=== PATIENT | female | born 1945 | race Caucasian/White ===

== ENCOUNTER 2020-10-24 09:52 | Inpatient (IN) ==
[2020-10-24] MEDS ORDERED: IOPAMIDOL 100 ML BOTTLE IV ONE (09:53)
[2020-10-24] MEDS ORDERED: ONDANSETRON 4 MG/2 ML VIAL IV ONE ×2 (10:50→12:53)
[2020-10-24] MEDS ORDERED: morphine 2 MG/ML VIAL IV PRN (10:50)
[2020-10-24] MEDS ORDERED: 0.9 % SODIUM CHLORIDE 1,000 ML IV ONE (10:50)
--- NOTE | 2020-10-24 10:56 | Emergency Department Note ---
Abdominal Pain HPI General Chief Complaint: Abdominal Pain Stated Complaint: LLQ pain Time Seen by Provider: 10/24/20 10:21 Source: patient, RN notes reviewed and old records reviewed Mode of arrival: ambulatory Limitations: no limitations History of Present Illness HPI Narrative: Narrative: 75-year-old female with 5-day history of moderate left lower quadrant abdominal pain. She has had slight nausea no vomiting no bright red blood per rectum or black tarry stools. Had slight diarrhea which is led to constipation with no BM times many days. Denies any urinary complaints or vaginal discharge or bleeding. Had fevers and chills today prior to arrival MD Complaint: abdominal pain Onset (ago): day(s) (5) Consistency: constant Location: LLQ Severity: moderate Quality: cramping and aching Radiation: none Migration to: no migration Improves with: nothing Worsens with: movement Context: history of similar episodes (Diverticulitis equivalency) Associated symptoms: Reports nausea, fever, chills and constipation; Denies vomiting, diarrhea, dysuria, hematemesis, hematochezia, melena, hematuria, anorexia and syncope Treatments prior to arrival: NSAIDs Related Data Home Medications Medication Instructions Recorded Confirmed cholecalciferol (vitamin D3) 50 5,000 unit PO QDAY 11/23/18 10/24/20 mcg (2,000 unit) capsule latanoprost 0.005 % eye drops 1 drp OPHTHALMIC QPM 11/23/18 10/24/20 gabapentin 300 mg capsule 300 mg PO TID PRN 04/12/19 10/24/20 clindamycin phosphate 1 % topical 1 applic TOPICAL QDAY 01/30/20 10/24/20 gel biotin 2,500 mcg PO QDAY 05/14/20 10/24/20 lysine 1 mg PO QDAY 05/14/20 10/24/20 sennosides 8.6 mg tablet 8.6 mg PO QDAY 06/07/20 10/24/20 Previous Rx's Medication Instructions Recorded omeprazole 40 mg capsule,delayed 40 mg PO QDAY #90 cap 03/23/20 release levothyroxine 175 mcg tablet 175 mcg PO QDAY #90 tab 05/28/20 naproxen 500 mg tablet See Rx Instructions .ROUTE 10/23/20 .COMPLEX #60 tab zolpidem 5 mg tablet 5 mg PO QHS PRN #30 tab 10/23/20 Allergies Allergy/AdvReac Type Severity Reaction Status Date / Time latex AdvReac Intermediate Rash Verified 10/24/20 09:54 Nickel AdvReac Intermediate Rash Verified 10/24/20 09:54 Review of Systems ROS ROS Narrative: Narrative: All systems ED: reviewed and negative except as stated. [facility] Narr[facility] Patient History Narrative: Narrative: Medical/Surgical/Family History All Active Problems (Updated 10/24/20 @ 14:09 by Estuardo Zapien MD) Acute diverticulitis of intestine (Acute) Diverticulitis large intestine (Acute) Myalgia (Acute) Facial swelling (Acute) URI (upper respiratory infection) (Acute) Abdominal pain (Acute) Change in bowel function (Acute) Blurring, left eye (Acute) Heartburn (Acute) Nausea (Acute) Dizziness (Acute) Constipation (Acute) Headache (Acute) Frontal sinusitis (Acute) URI with cough and congestion (Acute) History of mammogram (Chronic ~06/19/16) Osteoarthritis (Chronic) History of Papanicolaou smear of cervix (Chronic) Stress (Chronic) Vertigo (Chronic) Physical exam, routine (Chronic) Adjustment disorder with depressed mood (Acute) Grief at loss of child (Acute) Anxiety (Acute) Hypothyroidism (Acute) Bradycardia (Acute) Back pain (Acute) Stress disorder, acute (Acute) Hyperlipidemia (Acute) Lumbar radiculopathy (Acute) Peripheral vertigo (Acute) Cervical radiculopathy (Acute) Memory loss (Acute) Plantar fasciitis (Acute) Adult general medical exam (Acute) Other synovitis and tenosynovitis, left ankle and foot (Acute) Former smoker (Acute) Insomnia (Acute) BMI 30.0-30.9,adult (Acute) Allergic rhinitis (Acute) Medical History (Updated 10/24/20 @ 14:09 by Estuardo Zapien MD) History of mammogram (~06/19/16) History of Papanicolaou smear of cervix Normal Osteoarthritis Physical exam, routine Stress Vertigo Surgical History History of cataract extraction (~02/2018) History of colonoscopy (~2014) Dr. Barba - Diverticuli - Repeat in 5 yrs. History of neck surgery (~11/2015) Dr. Givens History of sinus surgery (~2017) Dr. Burry Hx of lumpectomy Negative Family History Mother CVA (cerebral vascular accident) Glaucoma Hypothyroidism Arthritis Osteoporosis Sister Melanoma Father , Age 84 Heart disease Social History Smoking Status: Former smoker Alcohol Intake Frequency: 0-2 drinks per day Substance Use: does not use Exam Narrative Narrative: Narrative: General Limitations: no limitations General appearance: Present alert and in no apparent distress Head Head: Present atraumatic and normocephalic Eye Eye: Present normal appearance, PERRL and EOMI ENT ENT: Present normal exam and mucous membranes moist Neck Neck: Present normal inspection and full ROM Chest Chest: Present normal inspection; Absent tenderness Respiratory Respiratory: Present normal lung sounds bilaterally; Absent respiratory distress Cardiovascular Cardiovascular: Present regular rate and normal rhythm; Absent systolic murmur Adbominal Abdominal: Present soft, tenderness (Left lower quadrant) and normal bowel sound s; Absent distention, guarding, rebound, rigidity, organomegaly, trauma, Mur phy's sign, tenderness at McBurney's Point, ascites, mass, bruit, pulsatile mass and hernia Rectal Rectal: Present normal inspection, normal rectal tone, heme (-) stool and tenderness; Absent decreased rectal tone, heme (+) stool, black stool, bloody stool, fecal impaction, hemorrhoids and mass Extremities Extremities: Present normal inspection and full ROM; Absent tenderness, pedal edema and pretibial edema Back Back: Present normal inspection and full ROM; Absent tenderness, CVA tenderness (R) and CVA tenderness (L) Neurological Neurological: Present alert and oriented X3 Psychiatric Psychiatric: Present normal affect and normal mood Skin Skin: Present warm (WNL); Absent rash Course Vital Signs Vital signs: Vital Signs Temperature 98.2 F 10/24/20 09:52 Pulse Rate 69 10/24/20 09:52 Respiratory Rate 18 10/24/20 09:52 Blood Pressure 124/74 10/24/20 09:52 Pulse Oximetry (%) 98 10/24/20 09:52 Temperature 97.0 F 10/25/20 07:12 Pulse Rate 62 10/25/20 07:12 Respiratory Rate 12 10/25/20 07:12 Blood Pressure 100/60 10/25/20 07:12 Pulse Oximetry (%) 95 10/25/20 07:12 [facility] MDM Narrative Medical decision making narrative: Narrative: 75-year-old female with diverticulitis and phlegmon discussed with Dr. Estuardo Zapien who graciously agreed to admit patient and IV antibiotics and evaluate the patient in emergency department. Differential Diagnosis Differential Diagnosis: Diverticulitis diverticulosis small bowel obstruction abscess. Medical Records Medical records reviewed: Yes I reviewed the patient's medical records. Lab Data Lab results reviewed: Yes I reviewed the patient's lab results. Result diagrams: 10/24/20 11:15 10/24/20 11:15 Labs: Lab Results 10/24/20 10/24/20 Range/Units 11:15 11:15 WBC 9.7 (4.5-11.0) K/mcL RBC 4.19 (3.59-5.38) M/mcL Hgb 13.1 (11.2-15.7) g/dL Hct 38.1 (34.1-44.9) % MCV 90.9 (80.0-100.0) fL MCH 31.3 (26.0-34.0) pg MCHC 34.4 (31.0-36.0) g/dL RDW 12.9 (11.5-14.5) % Plt Count 227 (140-440) K/mcL MPV 8.8 (7.4-10.4) fL Neut % (Auto) 70.9 (38.0-78.0) % Lymph % (Auto) 16.9 (15.5-49.0) % [place] % (Auto) 11.1 (1.0-12.0) % Eos % (Auto) 0.9 (0.0-7.0) % Baso % (Auto) 0.2 (0.0-2.0) % Lymph # (Auto) 1.63 (1.50-4.80) K/mcL [place] # (Auto) 1.07 H (0.10-0.90) K/mcL Eos # (Auto) 0.09 (0.00-0.70) K/mcL Baso # (Auto) 0.02 (0.00-0.30) K/mcL Absolute Neutrophils 6.86 (1.80-8.00) K/mcL Sodium 134 (133-145) mmol/L Potassium 3.6 (3.3-5.1) mmol/L Chloride 100 (96-108) mmol/L Carbon Dioxide 23 (22-30) mmol/L Anion Gap 11.0 (8.0-16.0) BUN 7 L (8-23) mg/dL Creatinine 0.7 (0.6-1.1) mg/dL POC Creatinine 0.7 (0.6-1.2) mg/dL GFR Calculation 85 Glucose 96 (70-105) mg/dL Calcium 8.8 (8.6-10.4) mg/dL Total Bilirubin 1.2 H (0.1-1.0) mg/dL AST 16 (<32) U/L ALT 15 (<40) U/L Alkaline Phosphatase 43 (39-117) U/L Total Protein 7.2 (5.9-8.4) gm/dL Albumin 4.1 (3.2-5.2) gm/dL Globulin 3.1 (2.2-3.7) gm/dL Albumin/Globulin Ratio 1.3 (1.0-2.3) Lipase 18 (7-60) U/L ED POC Tests ED POC Tests: ALIYA - SARS Antigen Negative Radiology Data Radiology results reviewed: Yes I reviewed the patient's radiology results. Radiology results narrative: IMPRESSION: Acute sigmoid diverticulitis with a phlegmon evolving along the left lateral pelvic sidewall Dr. Martinez was called with the report Interpreted and Authenticated by: Dalton Brown 10/24/20 Pulse Oximetry Data Pulse Ox %: 97 Interpretation: 97% on room air is within normal limits. Discharge Plan Patient/Caregiver Discharge Instructions Pt seen by [facility]ER/PA only: No Clinical Impression: Diverticulitis large intestine Qualifiers: Diverticulitis bleeding: without bleeding Diverticulitis complication: with abscess Qualified Code(s): K57.20 - Diverticulitis of large intestine with perforation and abscess without bleeding Patient Disposition: Xfer As Inpt ([facility]) Condition: Fair Discharge Date/Time: 10/24/20 15:40
[2020-10-24 11:51] LABS: POC Creatinine 0.7 mg/dL (0.6-1.2)
[2020-10-24 12:21] LABS: ALT/SGPT 15 U/L (<40); AST/SGOT 16 U/L (<32); Albumin 4.1 gm/dL (3.2-5.2); Albumin/Globulin Ratio 1.3 (1.0-2.3); Alkaline Phosphatase 43 U/L (39-117); Bilirubin,Total 1.2 mg/dL (0.1-1.0); Blood Urea Nitrogen 7 mg/dL (8-23); Calcium 8.8 mg/dL (8.6-10.4); Carbon Dioxide 23 mmol/L (22-30); Chloride 100 mmol/L (96-108); Globulin 3.1 gm/dL (2.2-3.7); Glomerular Filtration Rate 85; Glucose 96 mg/dL (70-105)
--- NOTE | 2020-10-24 12:27 | Cat Scan Report ---
History: Left lower quadrant pain TECHNIQUE: The abdomen was imaged following intravenous contrast scanning during the portal venous phase from the diaphragm through the symphysis pubis. Excretory phase images of the upper abdomen were acquired. Sagittal and coronal reformats were created. The radiation exposure was limited using dose reduction technology. FINDINGS: The lung bases are clear. There are multiple cysts in the liver. The largest are located inferiorly in segment six. These are chronic finding with no significant change since 04/20/20. No solid mass is seen in the liver. The bile ducts are nondilated. Gallbladder is normal with no stones or thickening of the wall. The spleen is normal in size and homogeneous. The pancreas is normal with no mass or inflammation. The adrenals and kidneys are normal. There is no stone or hydronephrosis. Large amount calcified plaque is present along the wall of the aorta with milder involvement in the iliac arteries. There is also plaque formation at the origins of both renal arteries. Multiple diverticula are present in the sigmoid colon and descending colon. There is acute diverticulitis in the sigmoid colon. There is significant stranding of the fat along the left side of the sigmoid colon tracking superiorly along the left ovarian vein. The vein is not thrombosed. This may be a phlegmon. No abscess is present. There is trace amount of free fluid deep in the right lower pelvis. No free intra-abdominal air is present.. No bowel obstruction is present. Small intestine is normal. The appendix is noninflamed. Uterus and ovaries are atrophic. Urinary bladder is normal. There is severe degenerative disc disease and arthritis at multiple levels in the lumbar spine. IMPRESSION: Acute sigmoid diverticulitis with a phlegmon evolving along the left lateral pelvic sidewall Dr. Martinez was called with the report Interpreted and Authenticated by: Dalton Brown 10/24/20
[2020-10-24] MEDS ORDERED: PIPERACILLIN SODIUM/TAZOBACTAM 4.5 GM in DEXTROSE 5% IN WATER 50 ML IV ONE (12:29)
[2020-10-24 14:09] LABS: Basophils # (Auto) 0.02 K/mcL (0.00-0.30); Basophils % (Auto) 0.2 % (0.0-2.0); Eosinophils # (Auto) 0.09 K/mcL (0.00-0.70); Eosinophils % (Auto) 0.9 % (0.0-7.0); Hematocrit 38.1 % (34.1-44.9); Hemoglobin 13.1 g/dL (11.2-15.7); Lymphocytes # (Auto) 1.63 K/mcL (1.50-4.80); Lymphocytes % (Auto) 16.9 % (15.5-49.0); Mean Cell Volume 90.9 fL (80.0-100.0); Mean Corpuscular HGB Conc 34.4 g/dL (31.0-36.0); Mean Platelet Volume 8.8 fL (7.4-10.4); Monocytes # (Auto) 1.07 K/mcL (0.10-0.90); Monocytes % (Auto) 11.1 % (1.0-12.0); Neutrophils % (Auto) 70.9 % (38.0-78.0); Platelet Count 227 K/mcL (140-440); RBC 4.19 M/mcL (3.59-5.38); Red Cell Distribution Width 12.9 % (11.5-14.5); WBC 9.7 K/mcL (4.5-11.0)
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
[2020-10-24] MEDS ORDERED: ONDANSETRON 4 MG/2 ML VIAL IV PRN (18:47)
[2020-10-24] MEDS ORDERED: HYDROmorphone 0.5 MG/0.5 ML SYRINGE IV PRN (18:53)
[2020-10-24] MEDS ORDERED: oxyCODONE HCL 5 MG TABLET PO PRN (18:53)
[2020-10-24] MEDS ORDERED: GABAPENTIN 300 MG CAPSULE PO PRN (19:01)
[2020-10-24] MEDS: 0.9 % SODIUM CHLORIDE 10 ML SYRINGE IV SCH (19:40)
[2020-10-24] MEDS: 0.9 % SODIUM CHLORIDE 1,000 ML IV SCH (19:41)
[2020-10-24] MEDS: PIPERACILLIN SODIUM/TAZOBACTAM 3.375 GM in DEXTROSE 5% IN WATER 50 ML IV SCH (19:41)
[2020-10-24] MEDS: DOCUSATE SODIUM 100 MG CAPSULE PO SCH (19:42)
[2020-10-24] MEDS: SENNOSIDES 1 TABLET PO SCH (19:42)
[2020-10-24] MEDS: LATANOPROST OPHTH DROPS 2.5ML BOTTLE OU SCH (19:43)
[2020-10-24] MEDS ORDERED: LATANOPROST OPHTH DROPS 2.5ML BOTTLE OS SCH (21:00)
[2020-10-24] MEDS ORDERED: ZOLPIDEM 5 MG TABLET PO PRN (21:00)
[2020-10-25] MEDS: PIPERACILLIN SODIUM/TAZOBACTAM 3.375 GM in DEXTROSE 5% IN WATER 50 ML IV SCH ×5 (00:50→23:31)
[2020-10-25] MEDS: 0.9 % SODIUM CHLORIDE 1,000 ML IV SCH ×4 (04:32→21:40)
[2020-10-25] MEDS: 0.9 % SODIUM CHLORIDE 10 ML SYRINGE IV SCH ×3 (04:33→21:42)
--- NOTE | 2020-10-25 06:24 | EKG ---
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
[2020-10-25] MEDS: PANTOPRAZOLE 40 MG TABLET PO SCH (07:42)
[2020-10-25] MEDS: LEVOTHYROXINE 75 MCG TABLET PO SCH (07:43)
[2020-10-25] MEDS: LEVOTHYROXINE 100 MCG TABLET PO SCH (07:43)
[2020-10-25] MEDS: DOCUSATE SODIUM 100 MG CAPSULE PO SCH ×2 (08:43→20:38)
--- NOTE | 2020-10-25 08:47 | XRay Report ---
HISTORY: Preop FINDINGS: Lateral view shows a lungs are mildly hyperinflated with an increased AP diameter and mild flattening of the diaphragms. There is attenuation of the peripheral pulmonary vessels in both upper lobes consistent with mild COPD. There is no evidence of pneumonia, mass or congestive heart failure. The heart size, mediastinum, sudhir and pleura are normal. There has been prior fusion in the lower neck. IMPRESSION: Mild COPD and no acute abnormality Interpreted and Authenticated by: Dalton Brown 10/25/20
[2020-10-25 08:50] LABS: Basophils # (Auto) 0.03 K/mcL (0.00-0.30); Basophils % (Auto) 0.4 % (0.0-2.0); Eosinophils # (Auto) 0.19 K/mcL (0.00-0.70); Eosinophils % (Auto) 2.7 % (0.0-7.0); Hematocrit 36.3 % (34.1-44.9); Hemoglobin 11.5 g/dL (11.2-15.7); Lymphocytes # (Auto) 1.34 K/mcL (1.50-4.80); Lymphocytes % (Auto) 19.1 % (15.5-49.0); Mean Cell Volume 93.3 fL (80.0-100.0); Mean Corpuscular HGB Conc 31.7 g/dL (31.0-36.0); Mean Platelet Volume 9.2 fL (7.4-10.4); Monocytes # (Auto) 0.84 K/mcL (0.10-0.90); Monocytes % (Auto) 11.9 % (1.0-12.0); Neutrophils % (Auto) 65.9 % (38.0-78.0); Platelet Count 217 K/mcL (140-440); RBC 3.89 M/mcL (3.59-5.38); Red Cell Distribution Width 12.9 % (11.5-14.5)
[2020-10-25 09:13] LABS: ALT/SGPT 11 U/L (<40); AST/SGOT 14 U/L (<32); Albumin 3.6 gm/dL (3.2-5.2); Albumin/Globulin Ratio 1.3 (1.0-2.3); Alkaline Phosphatase 38 U/L (39-117); Bilirubin,Direct 0.2 mg/dL (<0.3); Blood Urea Nitrogen 5 mg/dL (8-23); Calcium 8.5 mg/dL (8.6-10.4); Carbon Dioxide 24 mmol/L (22-30); Chloride 105 mmol/L (96-108); Globulin 2.8 gm/dL (2.2-3.7); Glomerular Filtration Rate 85; Glucose 88 mg/dL (70-105); Lactate Dehydrogenase 127 U/L (135-225); Phosphorous 2.7 mg/dL (2.5-4.5); Triglycerides 82 mg/dL (<150); Uric Acid 2.8 mg/dL (2.5-8.0)
--- NOTE | 2020-10-25 15:24 | General Surgery Progress Note ---
SUBJECTIVE Subjective Patient information: Note initiated : 10/25/20 at 3:21 pm Service Date, if different from initiated Date: [] Patient: Marla Andino 75 y/o F admitted on 10/24/20 for LLQ Pain. Chief Complaint: [] Principal diagnosis: Diverticulitis Interval history: Patient states that she feels much better. She has less tenderness. She is passing flatus but has not had a bowel movement. She denies nausea. She has been afebrile. Constitutional Vitals: Vital Signs Temp Pulse Resp BP Pulse Ox 97.0 F 70 12 129/70 98 10/25/20 12:00 10/25/20 12:00 10/25/20 12:00 10/25/20 12:00 10/25/20 12:00 Period Temp Pulse Resp BP Sys/Bruce Pulse Ox Last 24 Hr 97.0 F-98.7 F 61-95 12-16 100-145/60-78 95-98 Intake and Output 10/25/20 10/25/20 10/25/20 05:59 13:59 21:59 Intake Total 1850 1330 720 Balance 1850 1330 720 Weight 183 lb 14.4 oz Patient Weight 10/26/20 05:59 Weight 183 lb 14.4 oz Intake & Output: Intake & Output 10/25/20 10/25/20 10/25/20 05:59 13:59 21:59 Intake Total 1850 1330 720 Balance 1850 1330 720 Weight 183 lb 14.4 oz Intake: IV 1050 1090 Sodium Chloride 0.9% 1,000 ml @ 1000 990 125 mls/hr IV .Q8H ADÁN Rx#: [id number] Zosyn 3.375 gm In Dextrose 5% 50 100 in Water 50 ml @ 100 mls/hr IV Q6H ADÁN Rx#:[id number] Oral 800 240 720 Other: Meal Lunch # Voids 2 ENT ENT exam: Present mucous membranes moist, normal external ear exam and normal oropharynx Neck Neck exam: Present full ROM and normal inspection; Absent tenderness Respiratory Respiratory exam: Present normal respiratory exam and CTAB; Absent rales, rhonchi and wheezes Cardiovascular Cardiovascular exam: Present normal rate and rhythm, RRR, +S1 and +S2; Absent gallop and JVD GI/Abdominal GI/Abdominal exam: Present normal bowel sounds, distended, hyperactive bowel sounds and tenderness (Tenderness in left lower quadrant) Extremities Exam Extremities exam: Present full ROM, normal capillary refill and neurovascular intact Neurological Exam Neurological exam: Present alert, normal gait and oriented X3 Psychiatric Psychiatric exam: Present normal affect and normal mood A/P Assessment and plan (1) Acute diverticulitis of intestine: Status: Acute (2) Osteoarthritis: Status: Chronic (3) Adjustment disorder with depressed mood: Status: Acute Narrative A/P Narrative: We will continue present antibiotic therapy and clear liquid diet Time Spent With Patient Time: Total time spent is greater than 50% in coordination of care (as documented) at patient's floor/unit and/or counseling patient:
[2020-10-25] MEDS: SENNOSIDES 1 TABLET PO SCH (20:38)
[2020-10-25] MEDS: LATANOPROST OPHTH DROPS 2.5ML BOTTLE OU SCH (21:42)
[2020-10-26] MEDS: ACETAMINOPHEN 1,000 MG/100 ML BAG IV PRN ×2 (01:44→12:39)
[2020-10-26] MEDS: 0.9 % SODIUM CHLORIDE 10 ML SYRINGE IV SCH ×3 (05:46→20:07)
[2020-10-26] MEDS: 0.9 % SODIUM CHLORIDE 1,000 ML IV SCH ×2 (05:47→09:55)
[2020-10-26] MEDS: PIPERACILLIN SODIUM/TAZOBACTAM 3.375 GM in DEXTROSE 5% IN WATER 50 ML IV SCH ×4 (06:02→23:58)
[2020-10-26] MEDS: PANTOPRAZOLE 40 MG TABLET PO SCH (07:24)
[2020-10-26] MEDS: LEVOTHYROXINE 75 MCG TABLET PO SCH (07:24)
[2020-10-26] MEDS: LEVOTHYROXINE 100 MCG TABLET PO SCH (07:24)
[2020-10-26] MEDS: DOCUSATE SODIUM 100 MG CAPSULE PO SCH ×2 (07:54→20:01)
[2020-10-26 08:15] LABS: Basophils # (Auto) 0.03 K/mcL (0.00-0.30); Basophils % (Auto) 0.6 % (0.0-2.0); Eosinophils # (Auto) 0.32 K/mcL (0.00-0.70); Eosinophils % (Auto) 6.4 % (0.0-7.0); Hematocrit 32.6 % (34.1-44.9); Lymphocytes % (Auto) 27.8 % (15.5-49.0); Mean Cell Volume 91.8 fL (80.0-100.0); Mean Corpuscular HGB Conc 33.7 g/dL (31.0-36.0); Mean Platelet Volume 8.9 fL (7.4-10.4); Monocytes # (Auto) 0.61 K/mcL (0.10-0.90); Monocytes % (Auto) 12.1 % (1.0-12.0); Neutrophils % (Auto) 53.1 % (38.0-78.0); Platelet Count 212 K/mcL (140-440); RBC 3.55 M/mcL (3.59-5.38); Red Cell Distribution Width 12.5 % (11.5-14.5)
[2020-10-26 08:42] LABS: ALT/SGPT 12 U/L (<40); AST/SGOT 12 U/L (<32); Albumin 3.7 gm/dL (3.2-5.2); Albumin/Globulin Ratio 1.5 (1.0-2.3); Alkaline Phosphatase 35 U/L (39-117); Bilirubin,Direct 0.2 mg/dL (<0.3); Bilirubin,Total 0.7 mg/dL (0.1-1.0); Blood Urea Nitrogen 4 mg/dL (8-23); Calcium 8.7 mg/dL (8.6-10.4); Carbon Dioxide 23 mmol/L (22-30); Chloride 108 mmol/L (96-108); Globulin 2.4 gm/dL (2.2-3.7); Glomerular Filtration Rate 90; Glucose 90 mg/dL (70-105); Lactate Dehydrogenase 131 U/L (135-225); Phosphorous 2.5 mg/dL (2.5-4.5); Triglycerides 92 mg/dL (<150); Uric Acid 2.6 mg/dL (2.5-8.0)
--- NOTE | 2020-10-26 14:47 | General Surgery Progress Note ---
SUBJECTIVE Subjective Patient information: Note initiated : 10/26/20 at 2:45 pm Service Date, if different from initiated Date: [] Patient: Marla Andino 75 y/o F admitted on 10/24/20 for LLQ Pain. Chief Complaint: [] Principal diagnosis: Diverticulitis Interval history: Patient states that she feels better. She has much less pain. She is having some liquid bowel movements. She has been afebrile and her white blood count is normal. She has less abdominal distention. Constitutional Vitals: Vital Signs Temp Pulse Resp BP Pulse Ox 97.3 F 48 L 16 134/65 96 10/26/20 12:00 10/26/20 12:00 10/26/20 12:00 10/26/20 12:00 10/26/20 12:00 Period Temp Pulse Resp BP Sys/Bruce Pulse Ox Last 24 Hr 97.2 F-97.8 F 48-69 12-16 111-134/61-70 94-96 Intake and Output 10/26/20 10/26/20 10/26/20 05:59 13:59 21:59 Intake Total 885 2160 Balance 885 2160 Intake & Output: Intake & Output 10/26/20 10/26/20 10/26/20 05:59 13:59 21:59 Intake Total 885 2160 Balance 885 2160 Intake: IV 885 200 Sodium Chloride 0.9% 1,000 ml @ 735 75 mls/hr IV .[id number] ADÁN Rx#: [id number] Zosyn 3.375 gm In Dextrose 5% 50 100 in Water 50 ml @ 100 mls/hr IV Q6H ADÁN Rx#:[id number] Oral 1960 Other: Meal Lunch Percent of Meal Consumed 100% Feeding Ability Independent # Voids 2 ENT ENT exam: Present mucous membranes moist, normal external ear exam and normal oropharynx Neck Neck exam: Present full ROM and normal inspection; Absent tenderness Respiratory Respiratory exam: Present normal respiratory exam and CTAB; Absent rales, rhonchi and wheezes Cardiovascular Cardiovascular exam: Present normal rate and rhythm, RRR, +S1 and +S2; Absent gallop and JVD GI/Abdominal GI/Abdominal exam: Present normal bowel sounds, distended, hyperactive bowel sounds and tenderness (Tenderness in left lower quadrant) Additional comments: Tenderness is significantly improved from yesterday Extremities Exam Extremities exam: Present full ROM, normal capillary refill and neurovascular intact Neurological Exam Neurological exam: Present alert, normal gait and oriented X3 Psychiatric Psychiatric exam: Present normal affect and normal mood A/P Assessment and plan (1) Acute diverticulitis of intestine: Status: Acute (2) Osteoarthritis: Status: Chronic (3) Adjustment disorder with depressed mood: Status: Acute Narrative A/P Narrative: Continue present antibiotic therapy CT of abdomen and pelvis with IV contrast in a.m. Time Spent With Patient Time: Total time spent is greater than 50% in coordination of care (as documented) at patient's floor/unit and/or counseling patient:
[2020-10-26] MEDS: SENNOSIDES 1 TABLET PO SCH (20:01)
[2020-10-26] MEDS: LATANOPROST OPHTH DROPS 2.5ML BOTTLE OU SCH (20:02)
[2020-10-27] MEDS: 0.9 % SODIUM CHLORIDE 1,000 ML IV SCH (02:30)
[2020-10-27] MEDS: PIPERACILLIN SODIUM/TAZOBACTAM 3.375 GM in DEXTROSE 5% IN WATER 50 ML IV SCH ×2 (05:33→11:45)
[2020-10-27] MEDS: 0.9 % SODIUM CHLORIDE 10 ML SYRINGE IV SCH (05:33)
[2020-10-27 07:23] LABS: Basophils # (Auto) 0.03 K/mcL (0.00-0.30); Basophils % (Auto) 0.7 % (0.0-2.0); Eosinophils # (Auto) 0.34 K/mcL (0.00-0.70); Eosinophils % (Auto) 7.4 % (0.0-7.0); Hematocrit 38.1 % (34.1-44.9); Hemoglobin 12.1 g/dL (11.2-15.7); Lymphocytes # (Auto) 1.35 K/mcL (1.50-4.80); Lymphocytes % (Auto) 29.5 % (15.5-49.0); Mean Cell Volume 93.2 fL (80.0-100.0); Mean Corpuscular HGB Conc 31.8 g/dL (31.0-36.0); Mean Platelet Volume 8.9 fL (7.4-10.4); Monocytes # (Auto) 0.51 K/mcL (0.10-0.90); Monocytes % (Auto) 11.1 % (1.0-12.0); Neutrophils % (Auto) 51.3 % (38.0-78.0); Platelet Count 257 K/mcL (140-440); RBC 4.09 M/mcL (3.59-5.38); Red Cell Distribution Width 12.3 % (11.5-14.5); WBC 4.6 K/mcL (4.5-11.0)
[2020-10-27] MEDS: LEVOTHYROXINE 75 MCG TABLET PO SCH (07:49)
[2020-10-27] MEDS: PANTOPRAZOLE 40 MG TABLET PO SCH (07:49)
[2020-10-27] MEDS: LEVOTHYROXINE 100 MCG TABLET PO SCH (07:49)
[2020-10-27] MEDS: DOCUSATE SODIUM 100 MG CAPSULE PO SCH (07:49)
[2020-10-27 08:08] LABS: ALT/SGPT 13 U/L (<40); AST/SGOT 16 U/L (<32); Albumin/Globulin Ratio 1.3 (1.0-2.3); Alkaline Phosphatase 36 U/L (39-117); Bilirubin,Direct < 0.2 mg/dL (0-0.3); Bilirubin,Total 0.6 mg/dL (0.1-1.0); Blood Urea Nitrogen 3 mg/dL (8-23); Calcium 9.2 mg/dL (8.6-10.4); Carbon Dioxide 23 mmol/L (22-30); Chloride 105 mmol/L (96-108); Glomerular Filtration Rate 85; Glucose 84 mg/dL (70-105); Lactate Dehydrogenase 154 U/L (135-225); Phosphorous 3.1 mg/dL (2.5-4.5); Triglycerides 123 mg/dL (<150); Uric Acid 2.1 mg/dL (2.5-8.0)
[2020-10-27] MEDS ORDERED: IOPAMIDOL 100 ML BOTTLE IV ONE (09:25)
--- NOTE | 2020-10-27 09:54 | Cat Scan Report ---
History: Follow-up sigmoid diverticulitis with left lower quadrant pain TECHNIQUE: Following injection of intravenous nonionic contrast the patient was scanned during the portal venous phase from the diaphragm through the symphysis pubis. Sagittal and coronal reformats were created. The radiation exposure was limited using dose reduction technology. FINDINGS: There are several diverticula in the sigmoid and descending colon. There is inflammation in and adjacent to the proximal sigmoid colon. A small phlegmon is present which tracks superiorly along the inferior aspect of the left gonadal vein. The inflammation has improved since the prior exam done on 10/24/20. There is no abscess. There is no perforation. No bowel obstruction is present. Small intestine is normal. There are multiple cysts throughout the liver which remain stable. The gallbladder, spleen, pancreas, adrenals and kidneys are normal. Atherosclerotic disease is again seen in the aorta and iliac arteries. No abnormality is seen within the bladder uterus or ovaries. IMPRESSION: Improving proximal sigmoid diverticulitis Interpreted and Authenticated by: Dalton Brown 10/27/20
--- NOTE | 2020-10-27 11:36 | Discharge Summary ---
Discharge Provider Provider Patient information: Note initiated : 10/27/20 at 11:29 am Service Date, if different from initiated Date: [] Patient: Marla Andino 75 y/o F admitted on 10/24/20 for LLQ Pain. Chief Complaint: [] Date of admission: 10/24/20 15:40 Discharge date: 10/27/20 Primary care physician: Merline Zapien Admitting clinician: Vanessa Zapien Consults: 10/24/20 12:37 Consult to Physician [CONS] Stat Comment: Consulting Provider: Vanessa Zapien Reason For Exam: Physician to Consult Attending physician on discharge: Vanessa Zapien Discharging clinician: Irina Zapien COURSE Hospital Course Hospital course: 75-year-old female who presented with left lower quadrant and hypogastric pain patient has been on antibiotics since admission and is doing well. The evaluation revealed diverticulitis with phlegmon. She has been on IV antibiotics and has gradually improved. Tenderness is much more improved. Follow-up CT shows improvement in the sigmoid colon and distal descending colon. There is no evidence of abscess. Patient is tolerated full liquid diet without difficulty and is ready for discharge. She will be treated with ciprofloxacin and Flagyl [id number]. Discharge diagnosis: Acute diverticulitis with phlegmon Reason for admission: Acute diverticulitis Procedures: None Pertinent studies/significant findings: CT of abdomen and pelvis with IV contrast x2 Complications: None Time Spent with Patient Time attestation: Total time spent providing and/or coordinating discharge services: Physical Examination Vital Signs Vital signs: Temp Pulse Resp BP Pulse Ox 98.7 F 62 16 158/74 94 10/27/20 07:57 10/27/20 07:57 10/27/20 07:57 10/27/20 07:57 10/27/20 07:57 General physical appearance General physical exam: well developed, well nourished, no distress and no pain Eyes Eye exam: PERRL and normal ocular movement ENT ENT exam: normal nares, normal mucosa, no hearing loss and no congestion Head Head exam IM: Present atraumatic, normal inspection and normocephalic Neck Neck exam: no masses, no bruits, trachea midline, no lymphadenopathy and no venous distension Cardiovascular Cardiovascular exam IM: Present normal rate and rhythm, RRR, +S1 and +S2; Absent JVD and tachycardia Respiratory Respiratory exam: normal expansion, normal respiratory effort and clear to auscultation Abdomen Abdomen: Present soft, non tender and bowel sounds; Absent organomegaly, masses and guarding Integumentary Integumentary: Present no rash, no growths and no abnormal pigmentation Neurologic Neurologic: Present normal coordination and normal sensation Musculoskeletal Musculoskeletal: Present normal gait and normal posture Psychiatric Psychiatric: Present oriented to time, oriented to person, oriented to place, speech is normal and memory intact Discharge Plan Patient/Caregiver Discharge Instructions Activity: increase activity as tolerated Diet: Regular Diet Prescriptions: New ciprofloxacin HCl [ciprofloxacin HCl] 500 MG tablet 500 mg PO BID Qty: 40 RF: 0 metronidazole 500 mg tablet 500 mg PO Q8H Qty: 60 RF: 0 Continued cholecalciferol (vitamin D3) 2,000 unit capsule 5,000 unit PO QDAY RF: 0 latanoprost 0.005 % drops 1 drp OPHTHALMIC QPM RF: 0 gabapentin 300 mg capsule 300 mg PO TID PRN (Reason: Pain) RF: 0 clindamycin phosphate 1 % gel 1 applic TOPICAL QDAY RF: 0 omeprazole 40 mg capsule,delayed release(DR/EC) 40 mg PO QDAY Qty: 90 RF: 1 levothyroxine 175 mcg tablet 175 mcg PO QDAY Qty: 90 RF: 3 naproxen 500 mg tablet See Rx Instructions .ROUTE .COMPLEX Qty: 60 RF: 0 zolpidem [Ambien] 5 mg tablet 5 mg PO QHS PRN (Reason: insomnia) Qty: 30 RF: 3 sennosides [senna] 8.6 mg tablet 8.6 mg PO QDAY RF: 0 lysine 500 mg Capsule 1 mg PO QDAY RF: 0 biotin 2,500 mcg Tablet 2,500 mcg PO QDAY RF: 0 Follow Up Plan Follow up with: Vanessa Zapien MD [Physician] - (Contact office to see me in 3 weeks) Merline Zapien ARNP [Primary Care Provider] - Patient Disposition: Home, Self-Care Prognosis: Good Rehab Potential: Good I certify that the patient requires SNF services: No Overall status at discharge: patient is progressing back to baseline Discharge Orders: Discharge Order (Routine); Ordered 10/27/20 Ordered By: Vanessa Zapien Pending Pending Pending: Resuscitation Status Resuscitate (Full Code) Diet Clear Liquid Diet Start Wed Sep 15 1853 Docusate Sodium (Docusate Sodium 100 Mg Capsule) 100 mg PO BID ADÁN Last Admin: 10/27/20 07:49 Dose: Not Given Documented by: Admin: 10/26/20 20:01 Dose: 100 mg Documented by: Admin: 10/26/20 07:54 Dose: Not Given Documented by: Admin: 10/25/20 20:38 Dose: Not Given Documented by: Admin: 10/25/20 08:43 Dose: 100 mg Documented by: Admin: 10/24/20 19:42 Dose: 100 mg Documented by: [email or web address] Piperacillin Sod/Tazobactam (Sod 3.375 gm/ Dextrose) 50 mls @ 100 mls/hr IV Q6H [facility]; Protocol Last Infusion: 10/27/20 06:19 Dose: 0 mls/hr Documented by: Admin: 10/27/20 05:33 Dose: 100 mls/hr Documented by: Infusion: 10/27/20 00:30 Dose: 0 mls/hr Documented by: Admin: 10/26/20 23:58 Dose: 100 mls/hr Documented by: Infusion: 10/26/20 18:15 Dose: 0 mls/hr Documented by: Admin: 10/26/20 17:43 Dose: 100 mls/hr Documented by: Infusion: 10/26/20 12:38 Dose: 0 mls/hr Documented by: Admin: 10/26/20 12:05 Dose: 100 mls/hr Documented by: Infusion: 10/26/20 06:36 Dose: 0 mls/hr Documented by: Admin: 10/26/20 06:02 Dose: 100 mls/hr Documented by: Infusion: 10/26/20 00:01 Dose: 100 mls/hr Documented by: Admin: 10/25/20 23:31 Dose: 100 mls/hr Documented by: Infusion: 10/25/20 18:09 Dose: 100 mls/hr Documented by: Admin: 10/25/20 17:39 Dose: 100 mls/hr Documented by: Infusion: 10/25/20 12:27 Dose: 0 mls/hr Documented by: Admin: 10/25/20 11:54 Dose: 100 mls/hr Documented by: Infusion: 10/25/20 06:15 Dose: 0 mls/hr Documented by: Admin: 10/25/20 05:32 Dose: 100 mls/hr Documented by: Infusion: 10/25/20 01:20 Dose: 100 mls/hr Documented by: Admin: 10/25/20 00:50 Dose: 100 mls/hr Documented by: Infusion: 10/24/20 20:11 Dose: 100 mls/hr Documented by: Admin: 10/24/20 19:41 Dose: 100 mls/hr Documented by: GIL Acetaminophen (Ofirmev) 1,000 mg in 100 mls @ 200 mls/hr IV Q6HP PRN; Protocol PRN Reason: Per Pain Protocol/Fever > 101 Last Infusion: 10/26/20 13:29 Dose: 0 mls/hr Documented by: Admin: 10/26/20 12:39 Dose: 200 mls/hr Documented by: Infusion: 10/26/20 02:20 Dose: 0 mls/hr Documented by: Admin: 10/26/20 01:44 Dose: 200 mls/hr Documented by: [email or web address] Sodium Chloride (Sodium Chloride 0.9%) 1,000 mls @ 75 mls/hr IV .[id number] ADÁN [facility] Admin: 10/27/20 02:30 Dose: 75 mls/hr Documented by: Infusion: 10/26/20 23:15 Dose: 75 mls/hr Documented by: Admin: 10/26/20 09:55 Dose: 75 mls/hr Documented by: Admin: 10/26/20 05:47 Dose: Not Given Documented by: Infusion: 10/26/20 05:00 Dose: 75 mls/hr Documented by: Infusion: 10/25/20 21:40 Dose: 75 mls/hr Documented by: Admin: 10/25/20 15:40 Dose: 75 mls/hr Documented by: [email or web address] Latanoprost (Latanoprost Ophth Drops 2.5ml Bottle) 1 gtt OU QPM [facility] Last Admin: 10/26/20 20:02 Dose: 1 gtt Documented by: Admin: 10/25/20 21:42 Dose: Not Given Documented by: Admin: 10/24/20 19:43 Dose: Not Given Documented by: [email or web address] Levothyroxine Sodium (Levothyroxine 100 Mcg Tablet) 100 mcg PO ACB [facility] Last Admin: 10/27/20 07:49 Dose: 100 mcg Documented by: Admin: 10/26/20 07:24 Dose: 100 mcg Documented by: Admin: 10/25/20 07:43 Dose: 100 mcg Documented by: PENELOPE Levothyroxine Sodium ([facility]othyroxine 75 Mcg Tablet) [facility] Admin: 10/27/20 07:49 Dose: 75 mcg Documented by: Admin: 10/26/20 07:24 Dose: 75 mcg Documented by: Admin: 10/25/20 07:43 Dose: 75 mcg Documented by: PENELOPE Ondansetron HCl (Ondansetron 4 Mg/2 Ml Vial) 4 mg IV Q6HP PRN PRN Reason: Nausea And Vomiting Last Admin: 10/26/20 10:00 Dose: 4 mg Documented by: PENELOPE Pantoprazole Sodium (Pantoprazole 40 Mg Tablet) [facility] Last Admin: 10/27/20 07:49 Dose: 40 mg Documented by: Admin: 10/26/20 07:24 Dose: 40 mg Documented by: Admin: 10/25/20 07:42 Dose: 40 mg Documented by: PENELOPE Senna (Sennosides 1 Tablet) 2 tab PO HS [facility] Last Admin: 10/26/20 20:01 Dose: 2 tab Documented by: Admin: 10/25/20 20:38 Dose: Not Given Documented by: Admin: 10/24/20 19:42 Dose: 2 tab Documented by: [email or web address] Sodium Chloride (0.9 % Sodium Chloride 10 Ml Syringe) 10 ml IV Q8 [facility] Last Admin: 10/27/20 05:33 Dose: Not Given Documented by: Admin: 10/26/20 20:07 Dose: Not Given Documented by: Admin: 10/26/20 13:30 Dose: Not Given Documented by: [email or web address] Admin: 10/26/20 05:46 Dose: Not Given Documented by: Admin: 10/25/20 21:42 Dose: Not Given Documented by: Admin: 10/25/20 14:11 Dose: Not Given Documented by: [email or web address] Admin: 10/25/20 04:33 Dose: Not Given Documented by: Admin: 10/24/20 19:40 Dose: 10 ml Documented by: [email or web address] Shift Summary 10/27/20 03:24 Shift Summary by Faye Sears Primary Diagnosis: Diverticulitis Registration Status: Day of Hospitalization:3 Pertinent Medical Dx/Issues (may be more than one): Hypothyroidism, Anxiety, Diverticulitis, Osteoarthritis, Vertigo Interventions (O2, wounds, diuresis, etc): On clear liquid diet. Vital Signs with Trends: BP 130-150/60-70s mmHg. Meds (abo, pain, BP, etc): Denies needing pain medication this shift. Lines/Tubes: IVF NS @ 75 infusing well on RFA. Oxygen needs (home use vs. current use): RA. Lab/Rad results: Plan for repeat CT Abdomen today. Date of last BM: 10/26 Elimination: Up to the bathroom. Trends (is the patient improving?): Patient just passing gas but no BM this shift. Activity: Up ad amor in the room. Expected date of discharge: Depending on the CT Abdomen result. Discharge Plan (needs, disposition, etc): Patient lives from home alone. Initialized on 10/27/20 03:24 - END OF NOTE
== END 2020-10-27 12:35 | disposition home or self-care (01) | DRG 392 ==
LOC: ED 09:52 → MEDSUR 15:40
PROVIDERS: ADMIT Family Medicine Adult Medicine; ATTEND Family Medicine Adult Medicine